=== PATIENT | male | born 1950 | race Caucasian/White ===

== ENCOUNTER 2018-06-03 06:50 | Day surgery (SDC) | payer MEDICARE ==
[2018-05-31 10:49] VITALS: BMI 29.0
[~2018-06-03 06:50] MED LIST: LACTATED RINGERS 1,000 ML IV SCH; LIDOCAINE 1% 20 ML VIAL (10MG/ML) FOR IV START INTRADERMA PRN
[2018-06-03 07:07] VITALS: TEMP 97.6
[2018-06-03 07:18] LABS: Glucose,Whole Blood 164 mg/dL (75-99)
[2018-06-03] MEDS ORDERED: PROPOFOL 10 MG/ML 20 ML VIAL IV ONE (07:43)
[2018-06-03] MEDS ORDERED: LIDOCAINE 1% INJ 10MG/ML (20 ML MDV) ONE (07:43)
--- NOTE | 2018-06-03 07:52 | P.GSHP ---
History of Present Illness H&P Date: 06/03/18 Chief Complaint: Constipation This is a 67-year-old male who presents today for colonoscopy. Patient has issues with constipation. Past Medical History Past Medical History: COPD, Diabetes Mellitus, Eye Disorder, Hyperlipidemia, Hypertension, Osteoarthritis (OA), Skin Disorder Additional Past Medical History / Comment(s): HX ROSACEA. "Leaky valve." Recent left abdominal pain, currently resolved. Bilateral cataracts. History of Any Multi-Drug Resistant Organisms: None Reported Past Surgical History: Hernia Repair Additional Past Surgical History / Comment(s): UMBILICAL HERNIA, lap gianni. Past Anesthesia/Blood Transfusion Reactions: No Reported Reaction Smoking Status: Former smoker - Past Family History Mother Family Medical History: Coronary Artery Disease (CAD), Diabetes Mellitus Additional Family Medical History / Comment(s): cabg Father Family Medical History: Diabetes Mellitus Brother(s) Family Medical History: Cancer Additional Family Medical History / Comment(s): Pancreatic cancer. Medications and Allergies Home Medications Medication Instructions Recorded Confirmed Type Budesonide/Formoterol Fumarate 1 puff INHALATION BID 06/25/15 06/03/18 History [Symbicort 160-4.5 Mcg Inhaler] Lisinopril 40 mg PO QAM 06/25/15 06/03/18 History metFORMIN HCL 1,000 mg PO BID 06/25/15 06/03/18 History Multivitamins, Thera [Multivitamin 1 tab PO DAILY 05/31/18 06/03/18 History (formulary)] Allergies Allergy/AdvReac Type Severity Reaction Status Date / Time No Known Allergies Allergy Verified 05/31/18 10:45 Surgical - Exam Vital Signs Temp Pulse Resp BP Pulse Ox 97.6 F 113 H 20 157/94 97 06/03/18 07:03 06/03/18 07:03 06/03/18 07:03 06/03/18 07:03 06/03/18 07:03 - General well developed, no distress - Eyes PERRL - ENT normal pinna - Neck no masses - Respiratory normal expansion - Cardiovascular Rhythm: regular - Abdomen Abdomen: soft, non tender Results - Labs Abnormal Lab Results - Last 24 Hours (Table) 06/03/18 Range/Units 07:15 POC Glucose (mg/dL) 164 H (75-99) mg/dL Assessment and Plan Assessment: Constipation. We'll perform colonoscopy
--- NOTE | 2018-06-03 08:03 | P.OP ---
Date of Procedure: 06/03/18 Preoperative Diagnosis: Constipation Postoperative Diagnosis: Diverticulosis Procedure(s) Performed: Colonoscopy Anesthesia: MAC Surgeon: Addy Gomes Pathology: none sent Condition: stable Disposition: PACU Description of Procedure: Patient's placed on the endoscopy table in the lateral position. He received IV sedation. Digital rectal exam was performed which revealed no abnormalities. The flexible colonoscope was then placed patient anus and passed throughout the entire colon. The ileocecal valve was visualized. The cecum, ascending and transverse colon appeared normal. In the descending and sigmoid: was mild diverticular changes. Scope was then brought back the rectum and this appeared normal. Scope was withdrawn for patient.
[2018-06-03 08:38] VITALS: BP 122/86; PULSE 74; RESP 16
== END 2018-06-03 08:39 | disposition home or self-care (01) ==
LOC: ORWHC2ENDO 06:50
PROVIDERS: ATTEND Surgery
DX: K59.00 Constipation, unspecified (principal); J44.9 Chronic obstructive pulmonary disease, unspecified; E11.9 Type 2 diabetes mellitus without complications; E78.5 Hyperlipidemia, unspecified; I10 Essential (primary) hypertension; M19.90 Unspecified osteoarthritis, unspecified site; Z87.891 Personal history of nicotine dependence; Z82.49 Family history of ischemic heart disease and other diseases of the circulatory system; Z83.3 Family history of diabetes mellitus; Z80.0 Family history of malignant neoplasm of digestive organs; Z79.84 Long term (current) use of oral hypoglycemic drugs; Z79.51 Long term (current) use of inhaled steroids; Z79.899 Other long term (current) drug therapy
CPT/HCPCS: 45378; J2001; J2704